=== PATIENT | male | born 1960 | race Caucasian/White ===

== ENCOUNTER 2016-05-01 12:36 | Day surgery (SDC) | payer BC ==
[~2016-05-01] VITALS: Ht 182.9 cm; Wt 112.8 kg
[2016-05-01] MEDS ORDERED: PROPOFOL 60 ML ONE (14:42)
[2016-05-01] MEDS ORDERED: LIDOCAINE 2% (SDV) 5 ML INJ ONE (14:42)
[2016-05-01 15:06] VITALS: BP 136/98; PULSE 83; RESP 18
[2016-05-01 15:25] VITALS: BP 109/70; PULSE 83; RESP 16
[2016-05-01 15:55] VITALS: BP 131/90; PULSE 75; RESP 25
--- NOTE | 2016-05-01 20:51 | GILP ---
DATE OF PROCEDURE: NAME OF PROCEDURE: Colonoscopy. SURGEON: Mau Gage MD PREOPERATIVE DIAGNOSIS: Screening colonoscopy. POSTOPERATIVE DIAGNOSES: 1. Colonoscopy all the way to the cecum. 2. Internal hemorrhoids. 3. No colon neoplasm was identified. INDICATION FOR THE PROCEDURE: Mr. Gaurav Arellano is a 56-year-old male patient who was scheduled for screening colonoscopy. The procedure and possible complications are well explained to the patient. The patient understood and consented to the procedure. DESCRIPTION OF PROCEDURE: Under the influence of anesthesia, the colonoscope was carefully introduc ed in the rectum and under direct vision, it was advanced all the way to the cecum. FINDINGS: The patient had internal hemorrhoids. No colon neoplasm was identified. He tolerated the procedure very well and there was no complication from the procedure. At the end o f the procedure, he was awake with stable vital signs and he was discharged home to the care of his family. IMPRESSION: 1. Colonoscopy all the way to the cecum. 2. Internal hemorrhoids. 3. No colon neoplasm was identified. PLAN: Next screening colonoscopy in 10 years. Dictated By: MAU MENDIOLA/VANDA Conf#: [id number] DID#: [id number]
== END 2016-05-01 16:34 | disposition home or self-care (01) ==
LOC: GIL 12:36
PROVIDERS: ATTEND Internal Medicine Gastroenterology
DX: Z12.11 Encounter for screening for malignant neoplasm of colon (principal); K64.8 Other hemorrhoids
CPT/HCPCS: 45378; Z7610